=== PATIENT | female | born 1985 ===

== ENCOUNTER 2018-04-15 09:26 | Outpatient (CLI) | payer OTHER | END 2018-04-15 09:27 | disposition home or self-care (01) | LOC: C.USIC 09:26 ==

== ENCOUNTER 2018-06-29 10:06 | Outpatient (CLI) | payer OTHER | END 2018-06-29 10:07 | disposition home or self-care (01) | LOC: C.LAB 10:06 | DX: E16.2 Hypoglycemia, unspecified (principal) ==